=== PATIENT | female | born 1970 | race Caucasian/White ===

== ENCOUNTER → 2024-08-22 | Outpatient (CLI) | payer BC, SELFPAY ==
--- NOTE | 2024-08-22 10:35 | XR_ITS ---
Examination: Bilateral knees 2 views Right lateral knee left lateral knee 2 views Bilateral axial knees single view TECHNIQUE: Bilateral AP knees standing single view, bilateral PA knees standing single view flexion Standing right lateral knee left lateral knee 2 views Bilateral axial knees single view total 5 views Date and time: August 22, 2024 1153 hours INDICATIONS: Bilateral knee pain 10 years, history right knee arthroplasty FINDINGS: Moderate osteopenia Total right knee arthroplasty with satisfactory alignment No loosening of the prosthetic components Advanced narrowing [id number] lateral joint space left knee Moderate osteoarthritis left patellofemoral joint No left knee fracture IMPRESSION: Total right knee arthroplasty with satisfactory alignment Advanced narrowing [id number] lateral joint space left knee
== END | disposition home or self-care (01) ==
LOC: SDIM 10:13
PROVIDERS: PCP Family Medicine; Referring Provider Orthopaedic Surgery; Visit Provider Orthopaedic Surgery
DX: M25.862 Other specified joint disorders, left knee (principal); M25.861 Other specified joint disorders, right knee; Z96.651 Presence of right artificial knee joint
CPT/HCPCS: 73564